=== PATIENT | female | born 1965 | race Caucasian/White ===

== ENCOUNTER → 2024-02-20 07:49 | Outpatient (REF) | payer OTHER, SELFPAY ==
[2024-02-20 09:15] LABS: % Basophils 0.9 % (0-2); % Eosinophils 3.4 % (0-6); % Immature Granulocytes 0.4 % (0-0.5); % Lymphocytes 30.9 % (20.5-51.1); % Monocytes 9.4 % (1.7-9.3); Absolute Eosinophils 0.2 10^3/uL (0-0.7); Absolute Lymphocytes 1.5 10^3/uL (1.2-3.4); Absolute Monocytes 0.4 10^3/uL (0.1-0.6); Absolute Neutrophils 2.6 10^3/uL (1.4-6.5); Hematocrit 38.3 % (37.0-47.0); Mean Corp Hgb Conc. 33.9 g/dL (33.0-37.0); Mean Corpuscular Hgb 31.8 pg (27.0-31.0); Mean Corpuscular Volume 93.6 fL (81.0-99.0); Nucleated Red Blood Cells % 0 %; Platelet Count 434 10^3/uL (130-400); Red Blood Cell Count 4.09 10^6/uL (4.20-5.40); Red Cell Dist. Width 12.7 % (11.5-14.5); White Blood Cell Count 4.7 10^3/uL (4.8-10.8)
[2024-02-20 09:53] LABS: ALT (SGPT) 20 U/L (0-35); AST (SGOT) 28 U/L (14-36); Alkaline Phosphatase 113 U/L (38-126); Blood Urea Nitrogen 19 mg/dl (7-17); Calcium 10.1 mg/dl (8.4-10.2); Carbon Dioxide 30 mmol/L (22-30); Chloride 103 mmol/L (98-107); Glucose 69 mg/dl (70-99); Iron 86 ug/dl (37-170); Potassium 4.1 mmol/L (3.5-5.1); Sodium 139 mmol/L (135-145); Total Bilirubin 0.5 mg/dl (0.2-1.3); Total Protein 6.8 g/dl (6.3-8.2); eGFR 57.52
[2024-02-20 10:02] LABS: Percent Saturation 26 % (20-50); Total Iron Binding Capacity 323 ug/dl (265-497)
[2024-02-20 10:10] LABS: Free T4 0.95 ng/dl (0.78-2.19)
[2024-02-20 10:29] LABS: Ferritin 12.6 ng/ml (11.1-264.0)
[2024-02-20 11:00] LABS: Folate > 20.0 ng/ml (2.76-20); Vitamin B12 472 pg/ml (239-931)
[2024-02-20 11:22] LABS: Glycohemoglobin (HgbA1c) 5.3 % (4.0-5.6)
[2024-02-20 21:12] LABS: TSH 1.96 uIU/ml (0.47-4.68)
[2024-02-22 00:42] LABS: Beta-2-Microglobulin 3.3 mg/L (<=3.0)
== END ==
LOC: OIDL 07:49
PROVIDERS: ATTENDING PHYSICIAN Internal Medicine Hematology & Oncology; FAMILY PHYSICIAN Family Medicine
DX: C88.0 Waldenstrom macroglobulinemia (principal)
CPT/HCPCS: 36415; 80053; 82232; 82607; 82728; 82746; 82784; 83036; 83521; 83540; 83550; 84155; 84165; 84439; 84443; 85025; 86334

== ENCOUNTER → 2024-07-24 07:58 | Outpatient (REF) | payer BC, SELFPAY ==
[2024-07-24 09:27] LABS: ALT (SGPT) 15 U/L (0-35); AST (SGOT) 22 U/L (14-36); Albumin 4.2 g/dl (3.5-5.0); Alkaline Phosphatase 102 U/L (38-126); Blood Urea Nitrogen 20 mg/dl (7-17); Calcium 9.7 mg/dl (8.4-10.2); Carbon Dioxide 28 mmol/L (22-30); Chloride 102 mmol/L (98-107); Glucose 81 mg/dl (70-99); Potassium 3.9 mmol/L (3.5-5.1); Sodium 140 mmol/L (135-145); Total Bilirubin 0.6 mg/dl (0.2-1.3); Total Protein 6.8 g/dl (6.3-8.2); eGFR > 60.00
[2024-07-24 09:42] LABS: % Eosinophils 2.9 % (0-6); % Immature Granulocytes 0.3 % (0-0.5); % Lymphocytes 33.9 % (20.5-51.1); % Monocytes 8.9 % (1.7-9.3); Absolute Eosinophils 0.1 10^3/uL (0-0.7); Absolute Lymphocytes 1.3 10^3/uL (1.2-3.4); Absolute Monocytes 0.3 10^3/uL (0.1-0.6); Hematocrit 39.1 % (37.0-47.0); Hemoglobin 13.4 g/dL (12.0-16.0); Mean Corp Hgb Conc. 34.3 g/dL (33.0-37.0); Mean Corpuscular Hgb 31.2 pg (27.0-31.0); Mean Corpuscular Volume 90.9 fL (81.0-99.0); Nucleated Red Blood Cells % 0 %; Red Cell Dist. Width 12.4 % (11.5-14.5); White Blood Cell Count 3.8 10^3/uL (4.8-10.8)
[2024-07-24 09:54] LABS: Mean Platelet Volume 9.4 fL (7.4-10.4); Platelet Count 178 10^3/uL (130-400)
[2024-07-27 08:18] LABS: Myelin Assoc Glycoprotein Ab <1000 TU (0-999)
[2024-07-29 09:25] LABS: Albumin 3.96 g/dL (3.75-5.01); Alpha 1 Globulin 0.31 g/dL (0.19-0.46); Alpha 2 Globulin 0.56 g/dL (0.48-1.05); Free Kappa Light Chains,Quant 37.76 mg/L (3.30-19.40); Free Lambda Light Chains,Quant 7.75 mg/L (5.71-26.30); IgA 57 mg/dL (68-408); IgG 370 mg/dL (768-1632); IgM 1336 mg/dL (35-263); Immunofixation Electrophoresis IFE Done; Kappa/Lambda Fr Light Ratio 4.87 (0.26-1.65); Monoclonal Protein 0.69 g/dL (<=0.00); Total Protein-Electrophoresis 6.4 g/dL (6.3-8.2)
== END ==
LOC: OIDL 07:58
PROVIDERS: ATTENDING PHYSICIAN Internal Medicine Hematology & Oncology; FAMILY PHYSICIAN Family Medicine
DX: C88.00 Waldenstrom macroglobulinemia not having achieved remission (principal)
CPT/HCPCS: 36415; 80053; 82232; 82784; 83516; 83521; 84155; 84165; 85025; 86334

== ENCOUNTER → 2024-08-14 07:41 | Outpatient (REF) | payer BC, SELFPAY ==
[2024-08-14 09:29] LABS: Total Cholesterol 220 mg/dl (50-199); Triglyceride 52 mg/dl (10-149); Very Low Density Lipoprotein 10 mg/dl (0-30)
[2024-08-14 09:38] LABS: HDL Cholesterol 120 mg/dl; LDL Cholesterol, Calculated 90 mg/dl
== END ==
LOC: OIDL 07:41
PROVIDERS: ATTENDING PHYSICIAN Internal Medicine Cardiovascular Disease; FAMILY PHYSICIAN Family Medicine
DX: C7A.090 Malignant carcinoid tumor of the bronchus and lung (principal)
CPT/HCPCS: 36415; 80061

== ENCOUNTER → 2024-08-16 12:39 | Outpatient (REF) | payer BC, SELFPAY | LOC: RCS 12:39 | PROVIDERS: ATTENDING PHYSICIAN Internal Medicine Cardiovascular Disease; FAMILY PHYSICIAN Family Medicine | DX: R07.89 Other chest pain (principal) | CPT/HCPCS: 93017; 93350 ==